=== PATIENT | female | born 1965 | race Caucasian/White ===

== ENCOUNTER → 2016-12-04 | Emergency (ER) | payer SELFPAY ==
[~2016-12-04] MED LIST: PPD test dose* 5 TU/0.1 ML TEST (*USE PPD ORDER SET*) ONE
== END | disposition home or self-care (01) ==
LOC: UCCORT 13:03
DX: Z11.1 Encounter for screening for respiratory tuberculosis (principal)

== ENCOUNTER 2017-11-12 10:29 | Emergency (ER) | payer OTHER ==
[2017-11-12 12:16] VITALS: BP 142/84
--- NOTE | 2017-11-12 12:39 | UC ---
General HPI - HPI Summary HPI Summary: long standing history of insomnia and anxiety--[facility]-stop ref number [id number]-- supports patients statement---last filled 09/26/17 has appoinment with Psychiatrist next Friday11/18/17. Seek bridge medications to prevent w/d and anxiety - History of Current Complaint Chief Complaint: UCMedRefill Stated Complaint: MED REFILL Time Seen by Provider: 11/12/17 12:20 Hx Obtained From: Patient Hx Last Menstrual Period: n/a Onset/Duration: Gradual Onset, Lasting Days, Still Present Timing: Constant Current Severity: Moderate - Allergy/Home Medications Allergies/Adverse Reactions: Allergies Allergy/AdvReac Type Severity Reaction Status Date / Time No Known Allergies Allergy Verified 11/12/17 12:16 PMH/Surg Hx/FS Hx/Imm Hx Previously Healthy: Yes Psychological History: Anxiety, Depression - Surgical History Surgical History: Yes Surgery Procedure, Year, and Place: hysterectomy, 1996. breast reduction. appendectomy. cholecystectomy - Family History Known Family History: Positive: Hypertension - Social History Occupation: Employed Full-time Lives: With Family Alcohol Use: Occasionally Substance Use Type: None Smoking Status (MU): Current Some Day Smoker Type: Cigarettes Have You Smoked in the Last Year: No - Immunization History Hx Tetanus, Diphtheria Vaccination: No Vaccination Up to Date: Yes Review of Systems Constitutional: Negative Skin: Negative Eyes: Negative ENT: Negative Respiratory: Negative Cardiovascular: Negative Gastrointestinal: Negative Genitourinary: Negative Motor: Negative Neurovascular: Negative Musculoskeletal: Negative Neurological: Negative Psychological: Negative, Other - denies HI/SI no overt evidence of anxiety Is Patient Immunocompromised?: No All Other Systems Reviewed And Are Negative: Yes Physical Exam Triage Information Reviewed: Yes Appearance: Well-Appearing, No Pain Distress, Well-Nourished Vital Signs: Initial Vital Signs Temp 98.2 F 11/12/17 12:11 Pulse 88 11/12/17 12:11 Resp 16 11/12/17 12:11 BP 142/84 11/12/17 12:11 Pulse Ox 100 11/12/17 12:11 Vital Signs Reviewed: Yes Eye Exam: Normal Eyes: Positive: Conjunctiva Clear ENT Exam: Normal ENT: Positive: Normal ENT inspection, Hearing grossly normal, Pharynx normal. Negative: Trismus, Muffled voice, Hoarse voice Dental Exam: Normal Neck exam: Normal Neck: Positive: Supple, Nontender, No Lymphadenopathy Respiratory Exam: Normal Respiratory: Positive: Chest non-tender, Lungs clear, Normal breath sounds, No respiratory distress Cardiovascular Exam: Normal Cardiovascular: Positive: RRR, No Murmur, Pulses Normal, Brisk Capillary Refill Musculoskeletal Exam: Normal Musculoskeletal: Positive: Strength Intact, ROM Intact, No Edema Neurological Exam: Normal Neurological: Positive: Alert, Muscle Tone Normal Psychological Exam: Normal Psychological: Positive: Normal Response To Family Skin Exam: Normal Course/Dx - Course Course Of Treatment: refill klonopin and ambien for 7 days --follow with psychiatry as planned, follow with pcp for blood pressure management - Differential Dx - Multi-Symptom Provider Diagnoses: Anxeity Discharge - Discharge Plan Condition: Stable Disposition: HOME Prescriptions: Clonazepam 0.5 mg PO TID PRN #21 tab MDD 3 PRN Reason: Anxiety Zolpidem TAB* [Ambien TAB*] 10 mg PO BEDTIME PRN #7 tab MDD 1 PRN Reason: insomnia Patient Education Materials: Hypertension (ED), Insomnia (ED), Anxiety (ED) Referrals: [facility] [place] PH[facility]IAN REFERRAL [Outside] - 1 Week No Primary Care Phys,NOPCP [Primary Care Provider] - Additional Instructions: Follow with primary care doctor for BP recheck, Follow with psychiatry as planned
== END 2017-11-12 12:55 | disposition home or self-care (01) ==
LOC: UCCORT 10:29
DX: F41.9 Anxiety disorder, unspecified (principal); F32.9 Major depressive disorder, single episode, unspecified; G47.00 Insomnia, unspecified; Z76.0 Encounter for issue of repeat prescription; Z72.0 Tobacco use
CPT/HCPCS: 99212; G0463